=== PATIENT | female | born 1950 | race Caucasian/White ===

== ENCOUNTER 2016-08-11 22:06 | Emergency (ER) | payer OTHER ==
[~2016-08-11] VITALS: Ht 157.5 cm; Wt 45.4 kg
[~2016-08-11 22:06] MED LIST: IBUPROFEN600 MG ORAL; NKM; TRAMADOL HCL50 MG ORAL
[2016-08-11 22:41] VITALS: BP 119/78
[2016-08-11] MEDS ORDERED: LORazepam Inj 2mg/ml 1ml IM ONE (23:30)
[2016-08-12 00:12] VITALS: BP 122/81
[2016-08-12 02:15] VITALS: BP 123/84
--- NOTE | 2016-08-12 02:41 | Emergency Room Report ---
History of Present Illness General Chief Complaint: Alcohol Intoxication Source: Patient, EMS Present Illness HPI 66 YO F BIBEMS for ?acute ETOH intox. Lac to left forehead, unknown mechanism. Patient cursing everyone in triage, not wanting to provide additional HPI at this time despite multiple attempts. Allergies: Coded Allergies: No Known Allergies (Unverified , 10/05/15) UNABLE TO ASSESS (Unverified , 08/11/16) Patient History Limited by: medical condition Past Medical History: unable to obtain Past Surgical History: unable to obtain Pertinent Family History: unable to obtain Social History: Reports: alcohol use Now: No Nursing Documentation-[facility] Past Medical History: No Stated History Review of Systems All Other Systems: limited - limited d/t ETOH intox Physical Exam Vital Signs Date Time Temp Pulse Resp B/P Pulse Ox O2 Delivery O2 Flow Rate FiO2 08/11/16 21:57 88 20 126/88 98 Room Air 08/11/16 22:41 97.6 Sp02 EP Interpretation: reviewed, normal General Appearance: normal inspection, well appearing, no apparent distress, alert, other - +AOB, agitated Head: normocephalic, other - 2cm linear lac above left eyebrow Eyes: bilateral eye EOMI, bilateral eye PERRL ENT: normal ENT inspection, hearing grossly normal, normal voice Neck: normal inspection, full range of motion, supple, no bony tend Respiratory: normal inspection, lungs clear, normal breath sounds, no respiratory distress, no retraction, no wheezing Cardiovascular #1: regular rate, rhythm, no edema Gastrointestinal: normal inspection, normal bowel sounds, non tender, soft, no guarding, no hernia Genitourinary: no CVA tenderness Musculoskeletal: normal inspection, back normal, normal range of motion, Reggie' s Sign negative Neurologic: normal inspection, alert, oriented x3, responsive, mold unloader III-XII nml as tested, motor strength/tone normal, speech normal Psychiatric: normal inspection, judgement/insight normal, mood/affect normal Skin: normal inspection, normal color, no rash Procedures Laceration/Wound Repair Laceration/Wound Repair : Consent: Verbal Wound Location: face Wound's Depth, Shape: superficial Wound Explored: clean Betadine Prep?: Yes Anesthesia: Lidocaine w/ Epi Wound Debrided: minimal Suture Size/Type: 5:0 Number of Sutures: 2 Layer Closure?: No Sterile Dressing Applied?: Yes Splint Applied?: No Sling Applied?: No Patient Tolerated: Well Complications: None Medical Decision Making Diagnostic Impression: Primary Impression: Acute alcoholic intoxication Qualified Codes: F10.120 - Alcohol abuse with intoxication, uncomplicated Additional Impression: Laceration of forehead without complication Qualified Codes: S01.81XA - Laceration without foreign body of other part of head, initial encounter ER Course Patient was agitated, was refusing CT head. Does not have capacity to make decision d/t ETOH intoxication and given forehead laceration and unknown mechanism of injury, was sedated with 2mg IM ativan in order for CT head to be done. CT head: No acute trauma Lac repaired in ED Observed in ED in safe environment until sober No other acute issue Last Vital Signs Date Time Temp Pulse Resp B/P Pulse Ox O2 Delivery O2 Flow Rate FiO2 08/12/16 02:15 80 14 123/84 99 Room Air 08/11/16 22:41 97.6 Status: improved Disposition: HOME, SELF-CARE Referrals: [facility],REFERRING (PCP) MORIS KHAN M.D. Aug 12, 2016 02:41
[2016-08-12 04:10] VITALS: BP 118/78
[2016-08-12 06:30] VITALS: BP 123/74
[2016-08-12 07:23] VITALS: BP 123/74
--- NOTE | 2016-08-24 09:04 | Diagnostic Imaging Report ---
Indication: Altered mental status Technique: spiral acquisitions obtained through the brain. Angled axial and coronal 5 x 5 mm slices were reconstructed. No IV contrast utilized. Radiation dose was minimized using automated exposure control Total dose length product 1379 mGycm. CTDIvol(s) 70 mGy Comparison: 09/10/2007 FINDINGS: No acute hemorrhage or edema. No mass effect or midline shift. There is age-related enlargement of the ventricles and extra axial CSF spaces. There is periventricular deep white matter ischemic change. Normal ortiz-white differentiation. Visualized orbits are unremarkable. Visualized sinuses are unremarkable. Intact calvarium. No significant interim change IMPRESSION: Chronic and age-related changes. Negative for acute intracranial bleed or mass effect This agrees with the preliminary interpretation provided overnight by [facility]. The CT scanner at [facility] is accredited by the [employer] and the scans are performed using protocols designed to limit radiation exposure to as low as reasonably achievable to attain images of sufficient resolution adequate for diagnostic evaluation
== END 2016-08-12 07:23 | disposition home or self-care (01) ==
LOC: EDBD 22:06 → EMR 22:39
DX: F10.120 Alcohol abuse with intoxication, uncomplicated (principal); S01.81XA Laceration without foreign body of other part of head, initial encounter
CPT/HCPCS: 12013; 70450; 96372; 99284; Z7502

== ENCOUNTER 2019-06-25 18:54 | Emergency (ER) | payer SELFPAY ==
--- NOTE | 2019-06-25 19:09 | NUR ---
patient called for triage, accompanied by . patient refused vitals. 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 Patient states "why are you asking me questions. I have a cut on my head. Take my fucking vitals." Patient stands and grabs vitals machine. Called security. Asked patient if she wanted to continue triage. Patient curses at and tells him to get out of triage room. pt states patient is drunk and they were at another hospital 2 hours ago but were not seen. Patient refuses to be triaged in triage room or at bedside. patient becomes combative; witnessed by security and registration staff. security escorts patient back to waiting room. told patient we can continue treatment when she's ready. patient left with .
--- NOTE | 2019-06-25 19:09 | NUR ---
patients verbally aggressive. refuse to answer questions for triage.
--- NOTE | 2019-06-25 19:13 | NUR ---
security at triage. patient uncooperative with triage.
--- NOTE | 2019-06-25 19:16 | NUR ---
patient etoh and combative to [employer]. patient left. witnessed by security.
== END 2019-06-25 20:08 | disposition left against medical advice (07) ==
LOC: EMR 20:08
DX: Z53.21 Procedure and treatment not carried out due to patient leaving prior to being seen by health care provider (principal)